=== PATIENT | female | born 2005 | race Two or more races ===

== ENCOUNTER 2023-07-20 09:14 | Outpatient (REF) | payer OTHER, SELFPAY ==
--- NOTE | ~2023-07-20 | US_ITS ---
EXAMINATION: US PELVIS CLINICAL INFORMATION: Pelvic pain, right greater than left after IUD insertion. COMPARISON: None available. TECHNIQUE: Ultrasound of the pelvis is performed using both transabdominal and transvaginal transducers along with Doppler. Transvaginal imaging is performed due to inadequate visualization transabdominally. FINDINGS: Uterus: The uterus is anteverted and measures 7.8 x 3.3 x 4.1 cm. The double wall endometrial thickness is 0.4 mm. An IUD is present in good position within the endometrial canal. The uterus is smooth in contour and has normal myometrial echogenicity. No visible fibroid. Adnexa: Both ovaries are visualized. There is normal color flow to the adnexa. There is no ovarian torsion. There is a tiny amount of free pelvic fluid. Right ovary measures 3.4 x 2.2 x 2.9 cm for a volume of 12.0 mL and contains a hemorrhagic corpus luteal cyst measuring 2.3 x 1.4 x 1.5 cm. Left ovary measures 2.7 x 2.0 x 2.3 cm for a volume of 7.0 mL and appears normal. US/US pelvic and transvaginal IMPRESSION: 1. IUD in good position. 2. Hemorrhagic corpus luteal cyst right ovary.
== END 2023-07-20 09:15 | disposition home or self-care (01) ==
LOC: HO.UMASIMG 09:14
PROVIDERS: Visit Provider Nurse Practitioner Women's Health
DX: R10.2 Pelvic and perineal pain (principal)
CPT/HCPCS: 76830; 76856